=== PATIENT | female | born 1945 | race Caucasian/White ===

== ENCOUNTER 2017-11-16 21:06 | Emergency (ER) | payer OTHER ==
[2017-11-16 21:17] VITALS: BP 160/82; PULSE 78; TEMP 98; BMI 31.6
[2017-11-16] MEDS ORDERED: CYCLOBENZAPRINE HCL 10 MG TABLET (FP) PO ONE (21:43)
[2017-11-16] MEDS ORDERED: CYCLOBENZAPRINE HCL 10 MG TABLET (FP) ONE (21:44)
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
== END 2017-11-16 21:47 | disposition home or self-care (01) ==
LOC: JERFT 21:06
DX: Z04.1 Encounter for examination and observation following transport accident (principal); V47.5XXA Car driver injured in collision with fixed or stationary object in traffic accident, initial encounter; Y92.414 Local residential or business street as the place of occurrence of the external cause; Y93.89 Activity, other specified; Y99.9 Unspecified external cause status; I10 Essential (primary) hypertension; E78.00 Pure hypercholesterolemia, unspecified
CPT/HCPCS: 99281-25